=== PATIENT | male | born 1990 | race American Indian/Alaskan Native ===

== ENCOUNTER 2019-10-07 00:02 | Emergency (ER) | payer SELFPAY ==
[2019-10-07 02:16] LABS: BUN/Creatinine Ratio 14; Blood Urea Nitrogen 15 mg/dL (9-20); Calcium 9.8 mg/dL (8.4-10.2); Hemolysis Index 19
[2019-10-07] MEDS ORDERED: ACETAMINOPHEN 500 MG TAB PO ONE (02:26)
[2019-10-07 02:44] LABS: Hematocrit 46.4 % (35.5-45.6); Hemoglobin 15.4 gm/dl (11.8-15.2); Mean Corpuscular HGB Conc 33 % (32-34); Mean Corpuscular Volume 87 fl (84-94); Platelet Count 216 K/mm3 (140-440); Red Blood Count 5.36 M/mm3 (3.65-5.03); Red Cell Distribution Width 13.8 % (13.2-15.2)
[2019-10-07 02:52] LABS: Alanine Aminotransferase 64 units/L (7-56); Albumin 4.7 g/dL (3.9-5)
--- NOTE | 2019-10-07 02:53 | Cat Scan Report ---
CT head without contrast INDICATION : Headache following fall TECHNIQUE: Axial imaging performed from the skull apex through the skull base without the use of con trast. All CT examinations performed at this facility utilize dose modulation, iterative reconstruct ion or weight-based dosing, when appropriate, to reduce radiation dose to as low as reasonably achiev able. COMPARISON: None FINDINGS: No acute intracranial hemorrhage or parenchymal abnormality. Ventricles are normal in si ze and appear symmetric. Soft tissues including the orbits appear normal. No acute osseous abnorm ality. Sinuses and mastoid air cells are clear. IMPRESSION: No acute abnormality. Signer Name: Vin Perea MD Signed: 10/07/2019 2:49 AM Workstation Name: [id number]
[2019-10-07 02:54] LABS: Bilirubin,Direct < 0.2 mg/dL (0-0.2)
[2019-10-07 02:57] LABS: Bacteria,Urine 1+ /HPF (Negative); Bilirubin,Urine NEG (Negative); Blood,Urine NEG (Negative); Color,Urine Yellow (Yellow); Mucus,Urine FEW /HPF; Protein,Urine <15 mg/dL mg/dL (Negative); Urobilinogen,Urine < 2.0 mg/dL (<2.0)
[2019-10-07 03:01] LABS: Amphetamine Screen,Urine PRESUMPTIVE NEGATIVE; Benzodiazepines Screen,Urine PRESUMPTIVE NEGATIVE; Cocaine Screen,Urine PRESUMPTIVE NEGATIVE; Methadone Screen,Urine PRESUMPTIVE NEGATIVE; Opiate Screen,Urine PRESUMPTIVE NEGATIVE
[2019-10-07 03:13] LABS: Cannabinoid Screen,Urine PRESUMPTIVE POSITIVE
--- NOTE | 2019-10-07 06:07 | Emergency Department Report ---
ED General Adult HPI - General Chief complaint: Headache Stated complaint: HEADACHE, OFF BALANCE Source: patient Mode of arrival: Ambulatory Limitations: No Limitations - History of Present Illness Initial comments: Patient is a 29-year-old -[place] male with no past medical history who presents to the ED with complaint of acute onset persistent headache after he slipped on the floor and fell down hitting his head against a concrete floor 24 hours ago. Patient states that he has been having persistent headache despite taking ibuprofen. Patient denies syncope, shortness of breath, dizziness, change in vision, nausea, vomiting, neck pain, back pain, chest fever, chills, cough or hearing loss. MD Complaint: headache, s/p fall -: Sudden, hour(s) (24) Location: head Radiation: non-radiation Severity scale (0 -10): 4 Quality: aching Consistency: constant Improves with: none Worsens with: none Associated Symptoms: denies other symptoms, headaches. denies: confusion, chest pain, cough, diaphoresis, fever/chills, loss of appetite, malaise, nausea/vomiting, rash, seizure, shortness of breath, syncope, weakness Treatments Prior to Arrival: NSAID - Related Data Previous Rx's Medication Instructions Recorded Last Taken Type Butalb/Acetamin/Caff 50-325-40 1 - 2 each PO Q4H PRN #12 tablet 10/07/19 Unknown Rx [Fioricet 50-325-40] Ketorolac [Toradol] 10 mg PO Q8H PRN #20 tablet 10/07/19 Unknown Rx Ondansetron [Zofran Odt] 4 mg PO Q6HR PRN #15 tab.rapdis 10/07/19 Unknown Rx Allergies Allergy/AdvReac Type Severity Reaction Status Date / Time Penicillins Allergy Rash Verified 10/07/19 01:20 ED Review of Systems ROS: Stated complaint: HEADACHE, OFF BALANCE Other details as noted in HPI Constitutional: denies: chills, fever Eyes: denies: eye pain, eye discharge, vision change ENT: denies: ear pain, throat pain Respiratory: denies: cough, shortness of breath, wheezing Cardiovascular: denies: chest pain, palpitations Endocrine: no symptoms reported Gastrointestinal: denies: abdominal pain, nausea, diarrhea Genitourinary: denies: urgency, dysuria Musculoskeletal: denies: back pain, joint swelling, arthralgia Skin: denies: rash, lesions Neurological: headache. denies: weakness, paresthesias Psychiatric: denies: anxiety, depression Hematological/Lymphatic: denies: easy bleeding, easy bruising ED Past Medical Hx - Past Medical History Previous Medical History?: Yes Hx Asthma: Yes - Surgical History Past Surgical History?: Yes Additional Surgical History: Adnoid removal - Social History Smoking Status: Never Smoker - Medications Home Medications: Home Medications Medication Instructions Recorded Confirmed Last Taken Type Butalb/Acetamin/Caff 50-325-40 1 - 2 each PO Q4H PRN #12 tablet 10/07/19 Unknown Rx [Fioricet 50-325-40] Ketorolac [Toradol] 10 mg PO Q8H PRN #20 tablet 10/07/19 Unknown Rx Ondansetron [Zofran Odt] 4 mg PO Q6HR PRN #15 tab.rapdis 10/07/19 Unknown Rx ED Physical Exam - General Limitations: No Limitations General appearance: alert, in no apparent distress - Head Head exam: Present: atraumatic, normocephalic, normal inspection - Eye Eye exam: Present: normal appearance, PERRL, EOMI Pupils: Present: normal accommodation - ENT ENT exam: Present: normal exam, normal orophraynx, mucous membranes moist, TM's normal bilaterally, normal external ear exam - Neck Neck exam: Present: normal inspection, full ROM - Respiratory Respiratory exam: Present: normal lung sounds bilaterally. Absent: respiratory distress, wheezes, rales, rhonchi, chest wall tenderness, accessory muscle use, prolonged expiratory - Cardiovascular Cardiovascular Exam: Present: regular rate, normal rhythm, normal heart sounds. Absent: systolic murmur, diastolic murmur, rubs, gallop - GI/Abdominal GI/Abdominal exam: Present: soft, normal bowel sounds. Absent: distended, tenderness, hyperactive bowel sounds, hypoactive bowel sounds, organomegaly - Extremities Exam Extremities exam: Present: normal inspection, full ROM, normal capillary refill - Back Exam Back exam: Present: normal inspection, full ROM - Neurological Exam Neurological exam: Present: alert, oriented X3, CN II-XII intact, normal gait, reflexes normal - Psychiatric Psychiatric exam: Present: normal affect, normal mood - Skin Skin exam: Present: warm, dry, intact, normal color. Absent: rash ED Course Vital Signs 10/07/19 10/07/19 10/07/19 00:28 01:26 03:00 Temperature 98.6 F 98.6 F Pulse Rate 81 76 Respiratory 18 18 16 Rate Blood Pressure 132/87 132/87 O2 Sat by Pulse 97 97 Oximetry ED Medical Decision Making - Lab Data Result diagrams: 10/07/19 01:42 10/07/19 01:42 - Radiology Data Radiology results: report reviewed, image reviewed Findings [facility] [address] [place] [address] Cat Scan Report Signed Patient: LI GUTIERREZ MR#: [id number] : 1990 Acct:[id number] Age/Sex: 29 / M ADM Date: 10/07/19 Loc: ED Attending Dr: Ordering Physician: CARLEE CARRERO Date of Service: 10/07/19 Procedure(s): CT head/brain wo con Accession Number(s): [id number] cc: CARLEE CARRERO CT head without contrast INDICATION : Headache following fall TECHNIQUE: Axial imaging performed from the skull apex through the skull base without the use of contrast. All CT examinations performed at this facility utilize dose modulation, iterative reconstruction or weight-based dosing, when appropriate, to reduce radiation dose to as low as reasonably achievable. COMPARISON: None FINDINGS: No acute intracranial hemorrhage or parenchymal abnormality. Ventricles are normal in size and appear symmetric. Soft tissues including the orbits appear normal. No acute osseous abnormality. Sinuses and mastoid air cells are clear. IMPRESSION: No acute abnormality. Signer Name: Vin Perea MD Signed: 10/07/2019 2:49 AM Workstation Name: [id number] Transcribed By: BC Dictated By: Vin Perea MD Electronically Authenticated By: Vin Perea MD Signed Date/Time: 10/07/19 0249 - Medical Decision Making This is a 29-year-old -[place] male with no past medical history presented to the ED with persistent headache after he slipped and fell down hitting his head on the concrete floor 24 hours ago. In the ED, patient is alert and oriented 3 and is not in distress. Patient was treated for pain with Tylenol, and lab test results were reviewed and on actionable. Head CT scan without contrast shows no acute intracranial abnormalities or hemorrhage. On reevaluation, patient's headache is well controlled with medications, patient sleeping comfortably in the room in no distress. Patient was discharged home on medications and advised to follow-up with his primary care physician in 5-7 days for reevaluation or return to the ED immediately if symptoms get worse. - Differential Diagnosis intracranial hemorrhage; Head injury; Concussion; Contusion Critical care attestation.: If time is entered above; I have spent that time in minutes in the direct care of this critically ill patient, excluding procedure time. ED Disposition Clinical Impression: Contusion of scalp Qualifiers: Encounter type: initial encounter Qualified Code(s): S00.03XA - Contusion of scalp, initial encounter Acute post-traumatic headache Qualifiers: Intractability: not intractable Qualified Code(s): G44.319 - Acute post- traumatic headache, not intractable Disposition: DC- TO HOME OR SELFCARE Is pt being admited?: No Does the pt Need Aspirin: No Condition: Stable Instructions: Acute Headache (ED), Scalp Contusion in Adults (ED) Additional Instructions: Take medications with food, drink plenty fluids and follow-up with your primary care physician in 5-7 days for reevaluation. Return to the ED immediately if symptoms get worse. Prescriptions: Butalb/Acetamin/Caff 50-325-40 [Fioricet 50-325-40] 1 - 2 each PO Q4H PRN #12 tablet PRN Reason: Headache Ketorolac [Toradol] 10 mg PO Q8H PRN #20 tablet PRN Reason: Pain Ondansetron [Zofran Odt] 4 mg PO Q6HR PRN #15 tab.rapdis PRN Reason: Nausea Referrals: PRIMARY CARE,MD [Primary Care Provider] - 3-5 Days Forms: Work/School Release Form(ED) Time of Disposition: 06:08 Print Language: CENTRAL AFRICAN
[2019-10-07 06:29] VITALS: BP 133/80
== END 2019-10-07 06:30 | disposition home or self-care (01) ==
LOC: ED 00:02
DX: S00.03XA Contusion of scalp, initial encounter (principal); G44.319 Acute post-traumatic headache, not intractable; J45.909 Unspecified asthma, uncomplicated; Z79.899 Other long term (current) drug therapy; Z88.0 Allergy status to penicillin; W01.198A Fall on same level from slipping, tripping and stumbling with subsequent striking against other object, initial encounter; Y93.89 Activity, other specified; Y92.89 Other specified places as the place of occurrence of the external cause; Y99.8 Other external cause status
CPT/HCPCS: 36415; 70450; 80048; 80076; 80307; 81001; 85027

== ENCOUNTER 2020-11-08 00:42 | Emergency (ER) | payer SELFPAY ==
[2020-11-08 00:54] VITALS: BP 148/109
[2020-11-08] MEDS ORDERED: SODIUM CHLORIDE 0.9% 1000 ML 1,000 ML IV ONE (00:59)
[2020-11-08] MEDS ORDERED: ASPIRIN 325 MG TAB PO ONE (00:59)
--- NOTE | 2020-11-08 01:18 | XRay Report ---
XR chest routine 2V INDICATION / CLINICAL INFORMATION: chest pain COMPARISON: None available. FINDINGS: SUPPORT DEVICES: None. HEART / MEDIASTINUM: No significant abnormality. LUNGS / PLEURA: Low lung volumes with bronchovascular crowding. Costophrenic sulci are sharp. No pneu mothorax. ADDITIONAL FINDINGS: No significant additional findings. IMPRESSION: 1. Pulmonary hypoinflation without acute findings. Signer Name: Dennis Asher MD Signed: 11/08/2020 1:14 AM Workstation Name: [id number]
== END 2020-11-08 02:08 | disposition left against medical advice (07) ==
LOC: ED 00:42
DX: R07.9 Chest pain, unspecified (principal); Z53.21 Procedure and treatment not carried out due to patient leaving prior to being seen by health care provider
CPT/HCPCS: 71046; 93005